=== PATIENT | male | born 1955 | race African-American/Black ===

== ENCOUNTER 2021-07-02 22:41 | Inpatient (IN) | payer MEDICARE, OTHER ==
[~2021-07-02] VITALS: Ht 170.2 cm; Wt 88.9 kg
[~2021-07-02 22:41] MED LIST: AMLO-187 PO; LOSA1TAB19 PO; PANT40TA77 PO
[2021-07-02] MEDS ORDERED: FAMOTIDINE 20 MG/2 ML VIAL IVP ONE (23:45)
[2021-07-03 00:02] LABS: BILIRUBIN,URINE NEGATIVE (NEG); CLARITY,URINE CLEAR; COLOR,URINE YELLOW; NITRITE,URINE NEGATIVE (NEG); PH,URINE 6.5 (<5.0-8.0); PROTEIN,URINE NEGATIVE (NEG-TRACE); UROBILINOGEN,URINE 0.2 mg/dL (0.2 mg/dL)
[2021-07-03 00:05] LABS: BACTERIA,URINE 0 /HPF (0-FEW); RBC,URINE 0 /HPF (0-2); WBC,URINE OCC /HPF (0-4)
--- NOTE | 2021-07-03 00:16 | RAD ---
EXAMINATION: CT abdomen and pelvis without IV contrast. INDICATION:65 years, Male, abdominal pain, nausea and vomiting. TECHNIQUE: Axial CT images of the abdomen and pelvis were obtained. Coronal and sagittal reformatted performed. COMPARISON: PET/CT dated 01/03/2013. Exposure: One or more of the following individualized dose reduction techniques were utilized for thi s examination: 1. Automated exposure control 2. Adjustment of the mA and/or kV according to patient size 3. Use of iterative reconstruction technique. FINDINGS: LOWER CHEST: Unremarkable. ABDOMEN/PELVIS: Mildly dilated multiple loops of small bowel in the left abdomen with perienteric fat stranding and e ngorgement of the vasa recta. Transitional zone is not clearly identified. Mild mesenteric swirling i n the left abdomen. Sigmoid diverticulosis without acute diverticulitis. Uncomplicated duodenal diver ticulum. Appendix is normal. No suspicious focal hepatic lesion, within limitation of noncontrast exam. Spleen, pancreas are unrem arkable. Contracted gallbladder. No biliary ductal dilation. No adrenal nodule. No hydronephrosis. Si mple 6.8 cm left renal cyst. Mild aortoiliac atherosclerotic calcifications without dilation. No lymp hadenopathy. No pneumoperitoneum or ascites. Unremarkable bladder and prostate. MUSCULOSKELETAL STRUCTURES: No suspicious osseous lesion. Multilevel degenerative changes in the spine. IMPRESSION: 1. Mildly dilated loops of small bowel in the left abdomen with perienteric fat stranding and engorg ement of the vasa recta. Transitional zone is not clearly identified. Mild mesenteric swirling in the left abdomen. Findings are consistent with partial small bowel obstruction. 2. Sigmoid diverticulosis without acute diverticulitis. Electronically signed by: Timbo Fournier MD (07/03/2021 12:13 AM) [facility]
--- NOTE | 2021-07-03 00:54 | PHYS DOC ---
General Adult EDM: Chief Complaint: ABDOMINAL PAIN HPI: HPI: Patient is a 65 year old male with a history of lung cancer presenting to the ED today complaining of moderate generalized abdominal pain described as a bloating feeling, symptoms began 5 days ago. Patient reports nausea, denies vomiting. Reports diarrhea this morning after taking Mylanta yesterday. States symptoms are worse when he is laying back. Denies anything specifically relieving the symptoms. (HARRIET ALMONTE AUTOMATIC VULCANIZING LEAD OPERATOR) Review of Systems: Review of Systems: Constitutional: Denies fever or chills. [] Eyes: Denies change in visual acuity. [] HENT: Denies nasal congestion or sore throat. [] Respiratory: Denies cough or shortness of breath. [] Cardiovascular: Denies chest pain or edema. [] GI: Reports generalized abdominal pain with nausea, denies bloody stools or diarrhea. [] : Denies dysuria. [] Musculoskeletal: Denies back pain or joint pain. [] Integument: Denies rash. [] Neurologic: Denies headache, focal weakness or sensory changes. [] Psychiatric: Denies depression or anxiety. [] (HARRIET ALMONTE AUTOM[employer] VULCANIZING LEAD OPERATOR) Heart Score: C/O Chest Pain: N/A Risk Factors: Risk Factors: DM, Current or recent (<one month) smoker, HTN, HLP, family history of CAD, obesity. Risk Scores: Score 0 - 3: 2.5% MACE over next 6 weeks - Discharge Home Score 4 - 6: 20.3% MACE over next 6 weeks - Admit for Clinical Observation Score 7 - 10: 72.7% MACE over next 6 weeks - Early Invasive Strategies (HARRIET ALMONTE [employer]OM[employer] VULCANIZING LEAD OPERATOR) Current Medications: Current Medications Medications (Trade) Dose Ordered Sig/Jon Start Time Stop Time Status Last Admin Dose Admin Famotidine (Pepcid Vial) 20 mg 1X ONCE 07/02/21 23:45 07/02/21 23:46 DC (HARRIET ALMONTE AUTOM[employer] VULCANIZING LEAD OPERATOR) Allergies: Allergies: Allergies Coded Allergies Type Severity Reaction Last Updated Verified No Known Drug Allergies 12/31/13 No (HARRIET ALMONTE [employer] VULCAN[employer]ING LEAD OPERATOR) Physical Exam: PE: Constitutional: Well developed, well nourished, no acute distress, non-toxic appearance. [] HENT: Normocephalic, atraumatic, bilateral external ears normal, oropharynx moist, no oral exudates, nose normal. [] Eyes: PERRLA, EOMI, conjunctiva normal, no discharge. [] Neck: Normal range of motion, no tenderness, supple, no stridor. [] Cardiovascular:Heart rate regular rhythm, no murmur [] Lungs & Thorax: Bilateral breath sounds clear to auscultation [] Abdomen: Abdomen looks round/bloated, hyperresonance bowel sounds normal, soft, diffuse tenderness throughout the abdomen worse on the upper abdomen, no masses, no pulsatile masses. [] Skin: Warm, dry, no erythema, no rash. [] Back: No tenderness, no CVA tenderness. [] Extremities: No tenderness, no cyanosis, no clubbing, ROM intact, no edema. [] Neurologic: Alert and oriented X 3, normal motor function, normal sensory function, no focal deficits noted. [] Psychologic: Affect normal, judgement normal, mood normal. [] (HARRIET ALMONTE AUTOM[employer] VULCAN[employer]ING LEAD OPERATOR) Current Patient Data: Labs: Laboratory Tests Test 07/02/21 23:54 Urine Collection Type Void Urine Color Yellow Urine Clarity Clear Urine pH 6.5 (<5.0-8.0) Urine Specific [place] 1.020 (1.000-1.030) Urine Protein Negative mg/dL (NEG-TRACE) Urine Glucose (UA) Negative mg/dL (NEG) Urine Ketones (Stick) Negative mg/dL (NEG) Urine Blood Negative (NEG) Urine Nitrite Negative (NEG) Urine Bilirubin Negative (NEG) Urine Urobilinogen Dipstick 0.2 mg/dL (0.2 mg/dL) Urine Leukocyte Esterase Negative (NEG) Urine RBC 0 /HPF (0-2) Urine WBC Occ /HPF (0-4) Urine Squamous Epithelial Cells Occ /LPF Urine Bacteria 0 /HPF (0-FEW) Urine Mucus Slight /LPF (HARRIET ALMONTE AUTOM[employer] VULCANIZING LEAD OPERATOR) EKG: EKG: [] (HARRIET ALMONTE APRN) Radiology/Procedures: Radiology/Procedures: []PROCEDURE: CT ABDOMEN PELVIS WO CONTRAST EXAMINATION: CT abdomen and pelvis without IV contrast. INDICATION:65 years, Male, abdominal pain, nausea and vomiting. TECHNIQUE: Axial CT images of the abdomen and pelvis were obtained. Coronal and sagittal reformatted performed. COMPARISON: PET/CT dated 01/03/2013. Exposure: One or more of the following individualized dose reduction techniques were utilized for this examination: 1. Automated exposure control 2. Adjustment of the mA and/or kV according to patient size 3. Use of iterative reconstruction technique. FINDINGS: LOWER CHEST: Unremarkable. ABDOMEN/PELVIS: Mildly dilated multiple loops of small bowel in the left abdomen with perienteric fat stranding and engorgement of the vasa recta. Transitional zone is not clearly identified. Mild mesenteric swirling in the left abdomen. Sigmoid diverticulosis without acute diverticulitis. Uncomplicated duodenal diverticulum. Appendix is normal. No suspicious focal hepatic lesion, within limitation of noncontrast exam. Spleen, pancreas are unremarkable. Contracted gallbladder. No biliary ductal dilation. No adrenal nodule. No hydronephrosis. Simple 6.8 cm left renal cyst. Mild aortoiliac atherosclerotic calcifications without dilation. No lymphadenopathy. No pneumoperitoneum or ascites. Unremarkable bladder and prostate. MUSCULOSKELETAL STRUCTURES: No suspicious osseous lesion. Multilevel degenerative changes in the spine. IMPRESSION: 1. Mildly dilated loops of small bowel in the left abdomen with perienteric fat stranding and engorgement of the vasa recta. Transitional zone is not clearly identified. Mild mesenteric swirling in the left abdomen. Findings are consistent with partial small bowel obstruction. 2. Sigmoid diverticulosis without acute diverticulitis. Electronically signed by: Bogdan Fournier MD (07/03/2021 12:13 AM) [facility] DICTATED and SIGNED BY: BOGDAN FOURNIER MD DATE: 07/03/21 [id number] (HARRIET ALMONTE APRN) Course & Med Decision Making: Course & Med Decision Making Pertinent Labs and Imaging studies reviewed. (See chart for details) This is a 65-year-old male patient presented to the ED today complaining of generalized abdominal pain, bloating, symptoms for 5 days. Labs are pending, CT of the abdomen and pelvis was noted for a partial small bowel obstruction Patient has no vomiting in the ED. Spoke with Dr. Faulkner who will follow up with the patient Admitted under Dr. Theodore (HARRIET ALMONTE APRN) Course & Med Decision Making Patients Care and treatment plan provided by ER Nurse Practitioner. I was available for consult. Patient's chart reviewed. (LUKASZ BEST DO) Yue Disclaimer: Yue Disclaimer: This electronic medical record was generated, in whole or in part, using a voice recognition dictation system. (HARRIET ALMONTE APRN) Departure Departure Impression: Primary Impression: Partial small bowel obstruction Disposition: ADMITTED INPATIENT Condition: STABLE Referrals: UNKNOWN PCP NAME (PCP) HARRIET ALMONTE APRN Jul 03, 2021 00:54 LUKASZ BEST DO Jul 03, 2021 18:46
[2021-07-03] MEDS ORDERED: IV NORMAL SALINE 1000ML BAG 1,000 ML IV ONE (01:00)
[2021-07-03] MEDS ORDERED: ONDANSETRON PF 4 MG/2 ML VIAL. IVP PRN ×2 (01:00→08:30)
[2021-07-03 01:16] LABS: BASO % 0 % (0-3); EOS % 0 % (0-3); HEMATOCRIT 39.9 % (39.0-53.0); HEMOGLOBIN 12.7 g/dL (13.0-17.5); LYMPH % 11 % (24-48); MEAN CORPUSCULAR HEMOGLOBIN 26 pg (25-35); MEAN CORPUSCULAR HGB CONC 32 g/dL (31-37); MEAN CORPUSCULAR VOLUME 82 fL (79-100); MONO # 0.7 x10^3/uL (0.0-1.1); MONO % 8 % (0-9); NEUT # 7.2 x10^3/uL (1.8-7.7); NEUT % 81 % (31-73); PLATELET COUNT 285 x10^3/uL (140-400); RED BLOOD COUNT 4.86 x10^6/uL (4.30-5.70); RED CELL DISTRIBUTION WIDTH 18.8 % (11.5-14.5)
[2021-07-03] MEDS: MORPHINE SULFATE 4 MG/ML INJ. IVP PRN ×5 (02:55→21:28)
[2021-07-03 03:30] VITALS: BP 120/63
[2021-07-03] MEDS ORDERED: TAMS0.4C97 PO (03:46)
[2021-07-03 07:00] VITALS: BP 129/74
[2021-07-03] MEDS ORDERED: TIOT18CA IH (07:17)
[2021-07-03 07:29] LABS: CALCIUM 8.1 mg/dL (8.5-10.1); CREATININE 1.1 mg/dL (0.7-1.3); GFR 81.3; POTASSIUM 4.1 mmol/L (3.5-5.1)
[2021-07-03 07:34] LABS: ALBUMIN 3.3 g/dL (3.4-5.0); ALBUMIN/GLOBULIN RATIO 0.9 (1.0-1.7); MAGNESIUM 2.5 mg/dL (1.8-2.4); TOTAL BILIRUBIN 0.7 mg/dL (0.2-1.0); TOTAL PROTEIN 7.1 g/dL (6.4-8.2)
--- NOTE | 2021-07-03 08:20 | PDOC2 ---
CONSULT Date of Consult Date of Consult DATE: 07/03/21 TIME: 08:06 Reason for Consult Reason for Consult: sbo Referring Physician Referring Physician: er Identification/Chief Complaint Chief Complaint abdominal pain Source Source: Chart review, Patient History of Present Illness Reason for Visit: Admitted with 1 week hx of abdominal pain, vomiting, bloating and diarrhea. Thinks diarrhea is due to taking Mylanta No similar symptoms in past last diarrhea yesterday no abdominal surgical hx Past Medical History Cardiovascular: HTN, Hyperlipidemia Heme/Onc: Cancer (lung) Past Surgical History Past Surgical History: Other (thoractomy ) Family History Family History: Other (noncontributory to current illness ) Social History Quit ALCOHOL: none Drugs: None Lives: with Family Current Problem List Problem List Problems Medical Problems: (1) Partial small bowel obstruction Status: Acute Current Medications Current Medications Current Medications Famotidine (Pepcid Vial) 20 mg 1X ONCE IVP Last administered on 07/03/21at 02:55; Start 07/02/21 at 23:45; Stop 07/02/21 at 23:46; Status DC Ondansetron HCl (Zofran) 4 mg PRN Q8HRS PRN IVP NAUSEA/VOMITING Last administered on 07/03/21at 02:55; Start 07/03/21 at 01:00; Stop 07/04/21 at 00:59 Morphine Sulfate (Morphine Sulfate) 4 mg PRN Q2HR PRN IVP PAIN Last administered on 07/03/21at 06:49; Start 07/03/21 at 01:00; Stop 07/04/21 at 00:59 Sodium Chloride 1,000 ml @ 75 mls/hr 1X ONCE IV Last administered on 07/03/21at 02:54; Start 07/03/21 at 01:00; Stop 07/03/21 at 14:19 Active Scripts Active Reported Spiriva (Tiotropium [place]) 18 Mcg Cap.w.dev 2 Inh IH DAILY Flomax (Tamsulosin Hcl) 0.4 Mg Cap.er.24h 1 Cap PO DAILY Pantoprazole Sodium (Pantoprazole Sodium) 40 Mg Tablet.dr 1 Tab PO DAILY Amlodipine Besylate 10 Mg Tablet 1 Tab PO DAILY Losartan-Hctz 50-12.5 Mg Tab (Losartan/Hydrochlorothiazide) 1 Each Tablet 1 Tab PO DAILY Allergies Allergies: Coded Allergies: No Known Drug Allergies (Unverified , 12/31/13) ROS General: YES: Appetite (loss); No: Chills PSYCHOLOGICAL ROS: No: Anxiety, Depression Eyes: No Blurry vision, No Double vision HEENT: No: Heacaches, Sore Throat Hematological and Lymphatic: No: Bleeding Problems, Blood Clots Respiratory: No: Cough, Shortness of breath Gastrointestinal: Yes Other (see hpi) Genitourinary: No Dysuria, No Retention Musculoskeletal: No Joint Pain, No Muscle Pain Neurological: No Impaired Coord/balance, No Numbness/Tingling Skin: No Pruritus, No Rash Physical Exam General: Alert, Oriented X3, Cooperative HEENT: Atraumatic, PERRLA Lungs: Clear to auscultation, Normal air movement Heart: Regular rate, Normal S1, Normal S2 Abdomen: Soft, Other (Nd, benign abdominal exam currently ) Extremities: No clubbing, No cyanosis Skin: No rashes, No breakdown Neuro: Normal gait, Normal speech Psych/Mental Status: Mental status NL, Mood NL MUSCULOSKELETAL: No deformity, No swelling Vitals VITALS Vital Signs Date Time Temp Pulse Resp B/P (MAP) Pulse Ox O2 Delivery O2 Flow Rate FiO2 07/03/21 06:49 93 07/03/21 04:00 Room Air 07/03/21 03:30 98.2 82 18 120/63 (82) 98.2 Labs Labs Laboratory Tests Test 07/02/21 23:54 07/03/21 01:10 07/03/21 02:50 07/03/21 06:50 Urine Collection Type Void Urine Color Yellow Urine Clarity Clear Urine pH 6.5 (<5.0-8.0) Urine Specific [place] 1.020 (1.000-1.030) Urine Protein Negative mg/dL (NEG-TRACE) Urine Glucose (UA) Negative mg/dL (NEG) Urine Ketones (Stick) Negative mg/dL (NEG) Urine Blood Negative (NEG) Urine Nitrite Negative (NEG) Urine Bilirubin Negative (NEG) Urine Urobilinogen Dipstick 0.2 mg/dL (0.2 mg/dL) Urine Leukocyte Esterase Negative (NEG) Urine RBC 0 /HPF (0-2) Urine WBC Occ /HPF (0-4) Urine Squamous Epithelial Cells Occ /LPF Urine Bacteria 0 /HPF (0-FEW) Urine Mucus Slight /LPF White Blood Count 9.0 x10^3/uL (4.0-11.0) Red Blood Count 4.86 x10^6/uL (4.30-5.70) Hemoglobin 12.7 g/dL (13.0-17.5) Hematocrit 39.9 % (39.0-53.0) Mean Corpuscular Volume 82 fL (79-100) Mean Corpuscular Hemoglobin 26 pg (25-35) Mean Corpuscular Hemoglobin Concent 32 g/dL (31-37) Red Cell Distribution Width 18.8 % (11.5-14.5) Platelet Count 285 x10^3/uL (140-400) Neutrophils (%) (Auto) 81 % (31-73) Lymphocytes (%) (Auto) 11 % (24-48) Monocytes (%) (Auto) 8 % (0-9) Eosinophils (%) (Auto) 0 % (0-3) Basophils (%) (Auto) 0 % (0-3) Neutrophils # (Auto) 7.2 x10^3/uL (1.8-7.7) Lymphocytes # (Auto) 1.0 x10^3/uL (1.0-4.8) Monocytes # (Auto) 0.7 x10^3/uL (0.0-1.1) Eosinophils # (Auto) 0.0 x10^3/uL (0.0-0.7) Basophils # (Auto) 0.0 x10^3/uL (0.0-0.2) SARS-CoV-2 Antigen (Rapid) Negative (NEGATIVE) Sodium Level 138 mmol/L (136-145) Potassium Level 4.1 mmol/L (3.5-5.1) Chloride Level 103 mmol/L (98-107) Carbon Dioxide Level 25 mmol/L (21-32) Anion Gap 10 (6-14) Blood Urea Nitrogen 10 mg/dL (8-26) Creatinine 1.1 mg/dL (0.7-1.3) Estimated GFR (Cockcroft-Gault) 81.3 BUN/Creatinine Ratio 9 (6-20) Glucose Level 100 mg/dL (70-99) Calcium Level 8.1 mg/dL (8.5-10.1) Magnesium Level 2.5 mg/dL (1.8-2.4) Total Bilirubin 0.7 mg/dL (0.2-1.0) Aspartate Amino Transf (AST/SGOT) 11 U/L (15-37) Alanine Aminotransferase (ALT/SGPT) 22 U/L (16-63) Alkaline Phosphatase 64 U/L (46-116) Total Protein 7.1 g/dL (6.4-8.2) Albumin 3.3 g/dL (3.4-5.0) Albumin/Globulin Ratio 0.9 (1.0-1.7) Lipase 290 U/L (73-393) Laboratory Tests Test 07/02/21 23:54 07/03/21 01:10 07/03/21 02:50 07/03/21 06:50 Urine Collection Type Void Urine Color Yellow Urine Clarity Clear Urine pH 6.5 (<5.0-8.0) Urine Specific [place] 1.020 (1.000-1.030) Urine Protein Negative mg/dL (NEG-TRACE) Urine Glucose (UA) Negative mg/dL (NEG) Urine Ketones (Stick) Negative mg/dL (NEG) Urine Blood Negative (NEG) Urine Nitrite Negative (NEG) Urine Bilirubin Negative (NEG) Urine Urobilinogen Dipstick 0.2 mg/dL (0.2 mg/dL) Urine Leukocyte Esterase Negative (NEG) Urine RBC 0 /HPF (0-2) Urine WBC Occ /HPF (0-4) Urine Squamous Epithelial Cells Occ /LPF Urine Bacteria 0 /HPF (0-FEW) Urine Mucus Slight /LPF White Blood Count 9.0 x10^3/uL (4.0-11.0) Red Blood Count 4.86 x10^6/uL (4.30-5.70) Hemoglobin 12.7 g/dL (13.0-17.5) Hematocrit 39.9 % (39.0-53.0) Mean Corpuscular Volume 82 fL (79-100) Mean Corpuscular Hemoglobin 26 pg (25-35) Mean Corpuscular Hemoglobin Concent 32 g/dL (31-37) Red Cell Distribution Width 18.8 % (11.5-14.5) Platelet Count 285 x10^3/uL (140-400) Neutrophils (%) (Auto) 81 % (31-73) Lymphocytes (%) (Auto) 11 % (24-48) Monocytes (%) (Auto) 8 % (0-9) Eosinophils (%) (Auto) 0 % (0-3) Basophils (%) (Auto) 0 % (0-3) Neutrophils # (Auto) 7.2 x10^3/uL (1.8-7.7) Lymphocytes # (Auto) 1.0 x10^3/uL (1.0-4.8) Monocytes # (Auto) 0.7 x10^3/uL (0.0-1.1) Eosinophils # (Auto) 0.0 x10^3/uL (0.0-0.7) Basophils # (Auto) 0.0 x10^3/uL (0.0-0.2) SARS-CoV-2 Antigen (Rapid) Negative (NEGATIVE) Sodium Level 138 mmol/L (136-145) Potassium Level 4.1 mmol/L (3.5-5.1) Chloride Level 103 mmol/L (98-107) Carbon Dioxide Level 25 mmol/L (21-32) Anion Gap 10 (6-14) Blood Urea Nitrogen 10 mg/dL (8-26) Creatinine 1.1 mg/dL (0.7-1.3) Estimated GFR (Cockcroft-Gault) 81.3 BUN/Creatinine Ratio 9 (6-20) Glucose Level 100 mg/dL (70-99) Calcium Level 8.1 mg/dL (8.5-10.1) Magnesium Level 2.5 mg/dL (1.8-2.4) Total Bilirubin 0.7 mg/dL (0.2-1.0) Aspartate Amino Transf (AST/SGOT) 11 U/L (15-37) Alanine Aminotransferase (ALT/SGPT) 22 U/L (16-63) Alkaline Phosphatase 64 U/L (46-116) Total Protein 7.1 g/dL (6.4-8.2) Albumin 3.3 g/dL (3.4-5.0) Albumin/Globulin Ratio 0.9 (1.0-1.7) Lipase 290 U/L (73-393) Assessment/Plan Assessment/Plan SBO vs ileus, enteritis --- he has been having diarrhea will check SBFT, will ask GI to evgabriele also CRUZITO OLSEN APRN Jul 03, 2021 08:20
--- NOTE | 2021-07-03 08:28 | PDOC1 ---
History and Physical Date of Service: DOS: DATE: 07/03/21 TIME: 08:23 Chief Complaint: Chief Complain: Abdominal pain History of Present Illness: HPI: 65 year old male with a history of lung cancer presenting to the ED today complaining of moderate generalized abdominal pain described as a bloating feeling, symptoms began 5 days ago. Patient reports nausea, denies vomiting. Reports diarrhea this morning after taking Mylanta yesterday. States symptoms are worse when he is laying back. Denies anything specifically relieving the symptoms. Past Medical/Surgical History: PMH/PSH: Past medical history: Past surgical history: Thoracotomy, right hip replacement, left rotator cuff repair Allergies: Allergies: Coded Allergies: No Known Drug Allergies (Unverified , 12/31/13) Family History: Family History: Reviewed with no relative findings in the chart Social History: Social History: Former smoker, quit 1 year ago Current Medications: Current Medications Current Medications Famotidine (Pepcid Vial) 20 mg 1X ONCE IVP Last administered on 07/03/21at 02:55; Start 07/02/21 at 23:45; Stop 07/02/21 at 23:46; Status DC Ondansetron HCl (Zofran) 4 mg PRN Q8HRS PRN IVP NAUSEA/VOMITING Last administered on 07/03/21at 02:55; Start 07/03/21 at 01:00; Stop 07/04/21 at 00:59 Morphine Sulfate (Morphine Sulfate) 4 mg PRN Q2HR PRN IVP PAIN Last administered on 07/03/21at 06:49; Start 07/03/21 at 01:00; Stop 07/04/21 at 00:59 Sodium Chloride 1,000 ml @ 75 mls/hr 1X ONCE IV Last administered on 07/03/21at 02:54; Start 07/03/21 at 01:00; Stop 07/03/21 at 14:19 Active Scripts Active Reported Spiriva (Tiotropium [place]) 18 Mcg Cap.w.dev 2 Inh IH DAILY Flomax (Tamsulosin Hcl) 0.4 Mg Cap.er.24h 1 Cap PO DAILY Pantoprazole Sodium (Pantoprazole Sodium) 40 Mg Tablet.dr 1 Tab PO DAILY Amlodipine Besylate 10 Mg Tablet 1 Tab PO DAILY Losartan-Hctz 50-12.5 Mg Tab (Losartan/Hydrochlorothiazide) 1 Each Tablet 1 Tab PO DAILY ROS: Review of Systems Review of System REVIEW OF SYSTEMS: GENERAL: Denies weakness SKIN: No bruising, hair changes or rashes. EYES: No blurred, double or loss of vision. NOSE AND THROAT: No history of nosebleeds, hoarseness or sore throat. HEART: No history of palpitations, chest pain or shortness of breath on exertion. LUNGS: Denies cough, hemoptysis, wheezing or shortness of breath. GASTROINTESTINAL: Positive for abdominal pain GENITOURINARY: No history of frequency, urgency, hesitancy or nocturia. NEUROLOGIC: Denies history of numbness, tingling, or tremor. PSYCHIATRIC: No history of panic, anxiety or depression. ENDOCRINE: No history of heat or cold intolerance, polyuria or polydipsia. EXTREMITIES: Denies joint pain, pain on walking or stiffness. Physical Exam: Vital Signs: Vital Signs Date Time Temp Pulse Resp B/P (MAP) Pulse Ox O2 Delivery O2 Flow Rate FiO2 07/03/21 07:00 97.8 72 18 129/74 (92) 94 Room Air 97.8 Physcial Exam: General: Well developed, well nourished, no acute distress, well appearing HEENT: Pupils equally round and reactive to light, EOMI, no discharge, normal conjunctiva Neck: Supple, no nuchal rigidity, no JVD, trachea midline, no tenderness Cardiac: RRR, no murmurs, no gallops, no rubs Chest/Lungs: CTAB, no wheeze, no rhonchi, no crackles Abdomen: soft, mildly distended, minimal guarding, no peritoneal signs, non- tender Back: No tenderness Extremities: no edema, pulses intact, non-tender,capillary refill <3 sec bilateral upper and lower extremities, Neuro: Alert and oriented x 4, no focal deficits, normal speech Labs: Labs: Laboratory Tests Test 07/02/21 23:54 07/03/21 01:10 07/03/21 02:50 07/03/21 06:50 Urine Collection Type Void Urine Color Yellow Urine Clarity Clear Urine pH 6.5 (<5.0-8.0) Urine Specific [place] 1.020 (1.000-1.030) Urine Protein Negative mg/dL (NEG-TRACE) Urine Glucose (UA) Negative mg/dL (NEG) Urine Ketones (Stick) Negative mg/dL (NEG) Urine Blood Negative (NEG) Urine Nitrite Negative (NEG) Urine Bilirubin Negative (NEG) Urine Urobilinogen Dipstick 0.2 mg/dL (0.2 mg/dL) Urine Leukocyte Esterase Negative (NEG) Urine RBC 0 /HPF (0-2) Urine WBC Occ /HPF (0-4) Urine Squamous Epithelial Cells Occ /LPF Urine Bacteria 0 /HPF (0-FEW) Urine Mucus Slight /LPF White Blood Count 9.0 x10^3/uL (4.0-11.0) Red Blood Count 4.86 x10^6/uL (4.30-5.70) Hemoglobin 12.7 g/dL (13.0-17.5) Hematocrit 39.9 % (39.0-53.0) Mean Corpuscular Volume 82 fL (79-100) Mean Corpuscular Hemoglobin 26 pg (25-35) Mean Corpuscular Hemoglobin Concent 32 g/dL (31-37) Red Cell Distribution Width 18.8 % (11.5-14.5) Platelet Count 285 x10^3/uL (140-400) Neutrophils (%) (Auto) 81 % (31-73) Lymphocytes (%) (Auto) 11 % (24-48) Monocytes (%) (Auto) 8 % (0-9) Eosinophils (%) (Auto) 0 % (0-3) Basophils (%) (Auto) 0 % (0-3) Neutrophils # (Auto) 7.2 x10^3/uL (1.8-7.7) Lymphocytes # (Auto) 1.0 x10^3/uL (1.0-4.8) Monocytes # (Auto) 0.7 x10^3/uL (0.0-1.1) Eosinophils # (Auto) 0.0 x10^3/uL (0.0-0.7) Basophils # (Auto) 0.0 x10^3/uL (0.0-0.2) SARS-CoV-2 Antigen (Rapid) Negative (NEGATIVE) Sodium Level 138 mmol/L (136-145) Potassium Level 4.1 mmol/L (3.5-5.1) Chloride Level 103 mmol/L (98-107) Carbon Dioxide Level 25 mmol/L (21-32) Anion Gap 10 (6-14) Blood Urea Nitrogen 10 mg/dL (8-26) Creatinine 1.1 mg/dL (0.7-1.3) Estimated GFR (Cockcroft-Gault) 81.3 BUN/Creatinine Ratio 9 (6-20) Glucose Level 100 mg/dL (70-99) Calcium Level 8.1 mg/dL (8.5-10.1) Magnesium Level 2.5 mg/dL (1.8-2.4) Total Bilirubin 0.7 mg/dL (0.2-1.0) Aspartate Amino Transf (AST/SGOT) 11 U/L (15-37) Alanine Aminotransferase (ALT/SGPT) 22 U/L (16-63) Alkaline Phosphatase 64 U/L (46-116) Total Protein 7.1 g/dL (6.4-8.2) Albumin 3.3 g/dL (3.4-5.0) Albumin/Globulin Ratio 0.9 (1.0-1.7) Lipase 290 U/L (73-393) Laboratory Tests Test 07/02/21 23:54 07/03/21 01:10 07/03/21 02:50 07/03/21 06:50 Urine Collection Type Void Urine Color Yellow Urine Clarity Clear Urine pH 6.5 (<5.0-8.0) Urine Specific [place] 1.020 (1.000-1.030) Urine Protein Negative mg/dL (NEG-TRACE) Urine Glucose (UA) Negative mg/dL (NEG) Urine Ketones (Stick) Negative mg/dL (NEG) Urine Blood Negative (NEG) Urine Nitrite Negative (NEG) Urine Bilirubin Negative (NEG) Urine Urobilinogen Dipstick 0.2 mg/dL (0.2 mg/dL) Urine Leukocyte Esterase Negative (NEG) Urine RBC 0 /HPF (0-2) Urine WBC Occ /HPF (0-4) Urine Squamous Epithelial Cells Occ /LPF Urine Bacteria 0 /HPF (0-FEW) Urine Mucus Slight /LPF White Blood Count 9.0 x10^3/uL (4.0-11.0) Red Blood Count 4.86 x10^6/uL (4.30-5.70) Hemoglobin 12.7 g/dL (13.0-17.5) Hematocrit 39.9 % (39.0-53.0) Mean Corpuscular Volume 82 fL (79-100) Mean Corpuscular Hemoglobin 26 pg (25-35) Mean Corpuscular Hemoglobin Concent 32 g/dL (31-37) Red Cell Distribution Width 18.8 % (11.5-14.5) Platelet Count 285 x10^3/uL (140-400) Neutrophils (%) (Auto) 81 % (31-73) Lymphocytes (%) (Auto) 11 % (24-48) Monocytes (%) (Auto) 8 % (0-9) Eosinophils (%) (Auto) 0 % (0-3) Basophils (%) (Auto) 0 % (0-3) Neutrophils # (Auto) 7.2 x10^3/uL (1.8-7.7) Lymphocytes # (Auto) 1.0 x10^3/uL (1.0-4.8) Monocytes # (Auto) 0.7 x10^3/uL (0.0-1.1) Eosinophils # (Auto) 0.0 x10^3/uL (0.0-0.7) Basophils # (Auto) 0.0 x10^3/uL (0.0-0.2) SARS-CoV-2 Antigen (Rapid) Negative (NEGATIVE) Sodium Level 138 mmol/L (136-145) Potassium Level 4.1 mmol/L (3.5-5.1) Chloride Level 103 mmol/L (98-107) Carbon Dioxide Level 25 mmol/L (21-32) Anion Gap 10 (6-14) Blood Urea Nitrogen 10 mg/dL (8-26) Creatinine 1.1 mg/dL (0.7-1.3) Estimated GFR (Cockcroft-Gault) 81.3 BUN/Creatinine Ratio 9 (6-20) Glucose Level 100 mg/dL (70-99) Calcium Level 8.1 mg/dL (8.5-10.1) Magnesium Level 2.5 mg/dL (1.8-2.4) Total Bilirubin 0.7 mg/dL (0.2-1.0) Aspartate Amino Transf (AST/SGOT) 11 U/L (15-37) Alanine Aminotransferase (ALT/SGPT) 22 U/L (16-63) Alkaline Phosphatase 64 U/L (46-116) Total Protein 7.1 g/dL (6.4-8.2) Albumin 3.3 g/dL (3.4-5.0) Albumin/Globulin Ratio 0.9 (1.0-1.7) Lipase 290 U/L (73-393) Images: Images PROCEDURE: CT ABDOMEN PELVIS WO CONTRAST EXAMINATION: CT abdomen and pelvis without IV contrast. INDICATION:65 years, Male, abdominal pain, nausea and vomiting. TECHNIQUE: Axial CT images of the abdomen and pelvis were obtained. Coronal and sagittal reformatted performed. COMPARISON: PET/CT dated 01/03/2013. Exposure: One or more of the following individualized dose reduction techniques were utilized for this examination: 1. Automated exposure control 2. Adjustment of the mA and/or kV according to patient size 3. Use of iterative reconstruction technique. FINDINGS: LOWER CHEST: Unremarkable. ABDOMEN/PELVIS: Mildly dilated multiple loops of small bowel in the left abdomen with perienteric fat stranding and engorgement of the vasa recta. Transitional zone is not clearly identified. Mild mesenteric swirling in the left abdomen. Sigmoid diverticulosis without acute diverticulitis. Uncomplicated duodenal diverticulum. Appendix is normal. No suspicious focal hepatic lesion, within limitation of noncontrast exam. Spleen, pancreas are unremarkable. Contracted gallbladder. No biliary ductal dilation. No adrenal nodule. No hydronephrosis. Simple 6.8 cm left renal cyst. Mild aortoiliac atherosclerotic calcifications without dilation. No lymphadenopathy. No pneumoperitoneum or ascites. Unremarkable bladder and prostate. MUSCULOSKELETAL STRUCTURES: No suspicious osseous lesion. Multilevel degenerative changes in the spine. IMPRESSION: 1. Mildly dilated loops of small bowel in the left abdomen with perienteric fat stranding and engorgement of the vasa recta. Transitional zone is not clearly identified. Mild mesenteric swirling in the left abdomen. Findings are consistent with partial small bowel obstruction. 2. Sigmoid diverticulosis without acute diverticulitis. Assessment/Plan Assessment/Plan Acute abdominal pain due to partial small bowel obstruction Concern for gastroenteritis History of asthma History of BPH History of hypertension Obesity class I Admit to hospitalist service for further management General surgery consult Pending small bowel follow-through GI consult Serial abdominal exams NPO Continue IV fluids IV pain control Lovenox for DVT prophylaxis Protonix GI prophylaxis ADA diet CODE STATUS full code Discussed with RN and SW Disposition inpatient management as above DPOA: Robyn Day In addition to my E/M visit, advance care planning done with A total time of 20 minutes was spent from 930 to 950 face to face in discussion regarding the patient's goals of care, CODE STATUS. Justifications for Admission Other Justification LEEROY ALFREDO MD Jul 03, 2021 08:28
[2021-07-03] MEDS ORDERED: ACETAMINOPHEN 325 MG TABLET. PO PRN (08:30)
[2021-07-03] MEDS ORDERED: diphenhydrAMINE 50 MG/ML VIAL IVP PRN (08:30)
[2021-07-03] MEDS ORDERED: SENNOSIDES 8.6 MG TABLET PO PRN (08:30)
[2021-07-03] MEDS ORDERED: ZOLPIDEM 5 MG TABLET. PO PRN (08:30)
[2021-07-03] MEDS ORDERED: DEXTROSE 50% 25 GM / 50ML DISP.SYRIN. IV PRN (08:30)
[2021-07-03] MEDS ORDERED: DOCUSATE SODIUM 100 MG CAPSULE. PO PRN (08:30)
[2021-07-03] MEDS ORDERED: LORazepam 0.5 MG TABLET PO PRN (08:30)
[2021-07-03] MEDS ORDERED: diphenhydrAMINE HCL 25 MG CAPSULE PO PRN ×2 (08:30)
[2021-07-03] MEDS ORDERED: PROCHLORPERAZINE 10 MG/2 ML VIAL. IV PRN (08:30)
--- NOTE | 2021-07-03 08:50 | RAD ---
Study: XR ABDOMEN COMP ACUTE Indication: Small bowel obstruction. Comparison: CT abdomen/pelvis 07/02/2021; chest radiographs 06/25/2012 Findings: Mildly prominent lung markings. No confluent airspace infiltrate. No pleural effusion or pneumothorax . The cardiomediastinal silhouette is within normal limits for size. Symmetric wilda. Arthrosis at the shoulders. Redemonstration of mild small bowel dilatation such as at the left upper quadrant measuring up to nikita und 4 cm. No radiographic evidence for pneumoperitoneum. Small amount of well-formed stool within the colon. Gas is present within the rectum. Arthrosis at the right more so than left hips. Lumbar spondylosis. Impression: 1. Similar degree of mild small bowel dilatation mainly at the left aspect of the abdomen in relation to the recent CT abdomen/pelvis. Partial small bowel obstruction is still a consideration without ra diographic evidence for worsening. 2. Mildly increased lung markings favored chronic. No confluent infiltrate or layering effusion. Electronically signed by: NURY DUNCAN MD (07/03/2021 8:48 AM) [facility]
[2021-07-03] MEDS ORDERED: IOHEXOL 300 MG/ML 100ML VIAL. PO ONE (09:30)
[2021-07-03] MEDS: IV NORMAL SALINE 1000ML BAG 1,000 ML IV SCH ×2 (09:38→15:17)
[2021-07-03] MEDS: ENOXAPARIN 40 MG/0.4 ML SYRINGE. SQ SCH (09:39)
[2021-07-03 11:00] VITALS: BP 117/77
--- NOTE | 2021-07-03 12:32 | PDOC2 ---
GI CONSULT Reason For Consult: sbo HPI: HPI: 65 year old male with a history of lung cancer presenting to the ED today complaining of moderate generalized abdominal pain described as a bloating feeling, symptoms [id number] ago. Patient reports nausea and vomiting. Reports diarrhea this morning after taking Mylanta yesterday. States symptoms are worse when he is laying back. His symptoms had been relieved when he passed gas. he had been passing a lot of gas until yesterday. He has not had any N/V since admit sna d reports pain is controlled on meds. He reports an unremarkable colonoscopy with Shima Ellis at some point in the past. CT A/P with Mildly dilated loops of small bowel in the left abdomen with perienteric fat stranding and engorgement of the vasa recta. Transitional zone is not clearly identified. Mild mesenteric swirling in the left abdomen. Findings are consistent with partial small bowel obstruction PMH: PMH: Past medical history: Past surgical history: Thoracotomy, right hip replacement, left rotator cuff repair Allergies: No Known Drug Allergies (Unverified , 12/31/13) Family History: Reviewed with no relative findings in the chart Social History: Social History: Former smoker, quit 1 year ago Current Medications Famotidine (Pepcid Vial) 20 mg 1X ONCE IVP Last administered on 07/03/21at 02:55; Start 07/02/21 at 23:45; Stop 07/02/21 at 23:46; Status DC Ondansetron HCl (Zofran) 4 mg PRN Q8HRS PRN IVP NAUSEA/VOMITING Last administered on 07/03/21at 02:55; Start 07/03/21 at 01:00; Stop 07/04/21 at 00:59 Morphine Sulfate (Morphine Sulfate) 4 mg PRN Q2HR PRN IVP PAIN Last administered on 07/03/21at 06:49; Start 07/03/21 at 01:00; Stop 07/04/21 at 00:59 Sodium Chloride 1,000 ml @ 75 mls/hr 1X ONCE IV Last administered on 07/03/21at 02:54; Start 07/03/21 at 01:00; Stop 07/03/21 at 14:19 Active Scripts Active Reported Spiriva (Tiotropium [place]) 18 Mcg Cap.w.dev 2 Inh IH DAILY Flomax (Tamsulosin Hcl) 0.4 Mg Cap.er.24h 1 Cap PO DAILY Pantoprazole Sodium (Pantoprazole Sodium) 40 Mg Tablet.dr 1 Tab PO DAILY Amlodipine Besylate 10 Mg Tablet 1 Tab PO DAILY Losartan-Hctz 50-12.5 Mg Tab (Losartan/Hydrochlorothiazide) 1 Each Tablet 1 Tab PO DAILY Social History: Smoke: Quit ALCOHOL: none Drugs: None ROS: GENERAL: Denies weakness SKIN: No bruising, hair changes or rashes. EYES: No blurred, double or loss of vision. NOSE AND THROAT: No history of nosebleeds, hoarseness or sore throat. HEART: No history of palpitations, chest pain or shortness of breath on exertion. LUNGS: Denies cough, hemoptysis, wheezing or shortness of breath. GASTROINTESTINAL: Positive for abdominal pain GENITOURINARY: No history of frequency, urgency, hesitancy or nocturia. NEUROLOGIC: Denies history of numbness, tingling, or tremor. PSYCHIATRIC: No history of panic, anxiety or depression. ENDOCRINE: No history of heat or cold intolerance, polyuria or polydipsia. EXTREMITIES: Denies joint pain, pain on walking or stiffness. VItals: Vitals: Vital Signs Date Time Temp Pulse Resp B/P (MAP) Pulse Ox O2 Delivery O2 Flow Rate FiO2 07/03/21 12:21 94 Room Air 07/03/21 11:00 97.9 75 18 117/77 (90) 97.9 Labs: Labs: Laboratory Tests Test 07/02/21 23:54 07/03/21 01:10 07/03/21 02:50 07/03/21 06:50 Urine Collection Type Void Urine Color Yellow Urine Clarity Clear Urine pH 6.5 (<5.0-8.0) Urine Specific [place] 1.020 (1.000-1.030) Urine Protein Negative mg/dL (NEG-TRACE) Urine Glucose (UA) Negative mg/dL (NEG) Urine Ketones (Stick) Negative mg/dL (NEG) Urine Blood Negative (NEG) Urine Nitrite Negative (NEG) Urine Bilirubin Negative (NEG) Urine Urobilinogen Dipstick 0.2 mg/dL (0.2 mg/dL) Urine Leukocyte Esterase Negative (NEG) Urine RBC 0 /HPF (0-2) Urine WBC Occ /HPF (0-4) Urine Squamous Epithelial Cells Occ /LPF Urine Bacteria 0 /HPF (0-FEW) Urine Mucus Slight /LPF White Blood Count 9.0 x10^3/uL (4.0-11.0) Red Blood Count 4.86 x10^6/uL (4.30-5.70) Hemoglobin 12.7 g/dL (13.0-17.5) Hematocrit 39.9 % (39.0-53.0) Mean Corpuscular Volume 82 fL (79-100) Mean Corpuscular Hemoglobin 26 pg (25-35) Mean Corpuscular Hemoglobin Concent 32 g/dL (31-37) Red Cell Distribution Width 18.8 % (11.5-14.5) Platelet Count 285 x10^3/uL (140-400) Neutrophils (%) (Auto) 81 % (31-73) Lymphocytes (%) (Auto) 11 % (24-48) Monocytes (%) (Auto) 8 % (0-9) Eosinophils (%) (Auto) 0 % (0-3) Basophils (%) (Auto) 0 % (0-3) Neutrophils # (Auto) 7.2 x10^3/uL (1.8-7.7) Lymphocytes # (Auto) 1.0 x10^3/uL (1.0-4.8) Monocytes # (Auto) 0.7 x10^3/uL (0.0-1.1) Eosinophils # (Auto) 0.0 x10^3/uL (0.0-0.7) Basophils # (Auto) 0.0 x10^3/uL (0.0-0.2) SARS-CoV-2 Antigen (Rapid) Negative (NEGATIVE) Sodium Level 138 mmol/L (136-145) Potassium Level 4.1 mmol/L (3.5-5.1) Chloride Level 103 mmol/L (98-107) Carbon Dioxide Level 25 mmol/L (21-32) Anion Gap 10 (6-14) Blood Urea Nitrogen 10 mg/dL (8-26) Creatinine 1.1 mg/dL (0.7-1.3) Estimated GFR (Cockcroft-Gault) 81.3 BUN/Creatinine Ratio 9 (6-20) Glucose Level 100 mg/dL (70-99) Calcium Level 8.1 mg/dL (8.5-10.1) Magnesium Level 2.5 mg/dL (1.8-2.4) Total Bilirubin 0.7 mg/dL (0.2-1.0) Aspartate Amino Transf (AST/SGOT) 11 U/L (15-37) Alanine Aminotransferase (ALT/SGPT) 22 U/L (16-63) Alkaline Phosphatase 64 U/L (46-116) Total Protein 7.1 g/dL (6.4-8.2) Albumin 3.3 g/dL (3.4-5.0) Albumin/Globulin Ratio 0.9 (1.0-1.7) Lipase 290 U/L (73-393) Imaging: Imaging: EXAMINATION: CT abdomen and pelvis without IV contrast. INDICATION:65 years, Male, abdominal pain, nausea and vomiting. TECHNIQUE: Axial CT images of the abdomen and pelvis were obtained. Coronal and sagittal reformatted performed. COMPARISON: PET/CT dated 01/03/2013. Exposure: One or more of the following individualized dose reduction techniques were utilized for this examination: 1. Automated exposure control 2. Adjustment of the mA and/or kV according to patient size 3. Use of iterative reconstruction technique. FINDINGS: LOWER CHEST: Unremarkable. ABDOMEN/PELVIS: Mildly dilated multiple loops of small bowel in the left abdomen with perienteric fat stranding and engorgement of the vasa recta. Transitional zone is not clearly identified. Mild mesenteric swirling in the left abdomen. Sigmoid diverticulosis without acute diverticulitis. Uncomplicated duodenal dive rticulum. Appendix is normal. No suspicious focal hepatic lesion, within limitation of noncontrast exam. Spleen, pancreas are unremarkable. Contracted gallbladder. No biliary ductal dilation. No adrenal nodule. No hydronephrosis. Simple 6.8 cm left renal cyst. Mild aortoiliac atherosclerotic calcifications without dilation. No lymphadenopathy. No pneumoperitoneum or ascites. Unremarkable bladder and prostate. MUSCULOSKELETAL STRUCTURES: No suspicious osseous lesion. Multilevel degenerative changes in the spine. IMPRESSION: 1. Mildly dilated loops of small bowel in the left abdomen with perienteric fat stranding and engorgement of the vasa recta. Transitional zone is not clearly identified. Mild mesenteric swirling in the left abdomen. Findings are consi stent with partial small bowel obstruction. 2. Sigmoid diverticulosis without acute diverticulitis. Study: XR ABDOMEN COMP ACUTE Indication: Small bowel obstruction. Comparison: CT abdomen/pelvis 07/02/2021; chest radiographs 06/25/2012 Findings: Mildly prominent lung markings. No confluent airspace infiltrate. No pleural effusion or pneumothorax. The cardiomediastinal silhouette is within normal limits for size. Symmetric wilda. Arthrosis at the shoulders. Redemonstration of mild small bowel dilatation such as at the left upper quadrant measuring up to around 4 cm. No radiographic evidence for pneumoperitoneum. Small amount of well-formed stool within the colon. Gas is present within the rectum. Arthrosis at the right more so than left hips. Lumbar spondylosis. Impression: 1. Similar degree of mild small bowel dilatation mainly at the left aspect of the abdomen in relation to the recent CT abdomen/pelvis. Partial small bowel obstruction is still a consideration without radiographic evidence for worsenin g. 2. Mildly increased lung markings favored chronic. No confluent infiltrate or layering effusion. PE: General: Well developed, well nourished, no acute distress, well appearing HEENT: Pupils equally round and reactive to light, EOMI, no discharge, normal conjunctiva Neck: Supple, no nuchal rigidity, no JVD, trachea midline, no tenderness Cardiac: RRR, no murmurs, no gallops, no rubs Chest/Lungs: CTAB, no wheeze, no rhonchi, no crackles Abdomen: soft, mildly distended, minimal guarding, no peritoneal signs, non- tender Back: No tenderness Extremities: no edema, pulses intact, non-tender,capillary refill <3 sec bilateral upper and lower extremities, Neuro: Alert and oriented x 4, no focal deficits, normal speech A/P: A/P: A/P 1) Small bowel obstruction: He is feeling better now and does no tfeel like he needs to vomit. We discussed NGT if his symptoms worsen. he is amenable. Will monitor serial X rays and place NGT if symptms/imaging does not improve DALLAS CASTELLANO MD Jul 03, 2021 12:32
--- NOTE | 2021-07-03 12:49 | RAD ---
DG SMALL BOWEL FOLLOW THROUGH Indication: Reason: sbo / Spl. Instructions: 400ML OMNI 300MG USED / History: . Comparison: CT abdomen from 07/02/2021. Technique: Preliminary insurance executive film of the abdomen was obtained. Then following ingestion of oral 400 m L of Omni 300, serial images of the abdomen were obtained to assess progress of contrast throughout t he small bowel. Once the contrast reached the colon. Number of Fluoroscopic Images: 7 Findings: The insurance executive image demonstrates a nonobstructive bowel gas pattern. There are no distended small bowel loops. No strictures are seen. The small bowel fold pattern is unr emarkable. Transit time was slightly delayed at 1 hour 30 minutes (normal <120 minutes.) IMPRESSION: 1. Slightly delayed motility, otherwise unremarkable small bowel series. Electronically signed by: Stone Cardoza DO (07/03/2021 12:46 PM) [facility]
[2021-07-03] MEDS ORDERED: TADA20TA33 PO (13:48)
[2021-07-03] MEDS ORDERED: LOSA-73 PO (13:48)
[2021-07-03 15:00] VITALS: BP 118/57
[2021-07-03 19:00] VITALS: BP 127/63
[2021-07-03 23:00] VITALS: BP 127/73
[2021-07-04 03:00] VITALS: BP 132/85
[2021-07-04 07:00] VITALS: BP 171/89
[2021-07-04 07:00] LABS: BASO % 0 % (0-3); EOS # 0.1 x10^3/uL (0.0-0.7); EOS % 3 % (0-3); HEMATOCRIT 35.4 % (39.0-53.0); HEMOGLOBIN 11.3 g/dL (13.0-17.5); LYMPH # 1.1 x10^3/uL (1.0-4.8); LYMPH % 20 % (24-48); MEAN CORPUSCULAR HEMOGLOBIN 27 pg (25-35); MEAN CORPUSCULAR HGB CONC 32 g/dL (31-37); MEAN CORPUSCULAR VOLUME 83 fL (79-100); MONO # 0.6 x10^3/uL (0.0-1.1); MONO % 11 % (0-9); NEUT # 3.6 x10^3/uL (1.8-7.7); NEUT % 66 % (31-73); PLATELET COUNT 250 x10^3/uL (140-400); RED BLOOD COUNT 4.25 x10^6/uL (4.30-5.70); RED CELL DISTRIBUTION WIDTH 18.3 % (11.5-14.5); WHITE BLOOD COUNT 5.5 x10^3/uL (4.0-11.0)
[2021-07-04 07:11] LABS: CALCIUM 8.2 mg/dL (8.5-10.1); GFR 90.7; MAGNESIUM 1.9 mg/dL (1.8-2.4); PHOSPHORUS 3.9 mg/dL (2.6-4.7)
[2021-07-04] MEDS ORDERED: PANTOPRAZOLE IV PUSH 40 MG VIAL. IVP SCH (07:30)
--- NOTE | 2021-07-04 08:47 | PDOC ---
SURGICAL PROGRESS NOTE DATE: 07/04/21 TIME: 08:46 Subjective Patient states he is feeling much better wants to go home passing flatus Vital Signs Vital Signs Date Time Temp Pulse Resp B/P (MAP) Pulse Ox O2 Delivery O2 Flow Rate FiO2 07/04/21 07:00 98.2 87 18 171/89 (116) 96 Room Air 98.2 I&O Intake and Output 07/04/21 07:00 Intake Total 0 ml Balance 0 ml Intake Oral 0 ml # Voids 3 PATIENT HAS A HERNANDEZ: No General: Alert, Oriented X3, Cooperative, No acute distress Abdomen: Normal bowel sounds, Soft, No tenderness Labs Laboratory Tests Test 07/02/21 23:54 07/03/21 01:10 07/03/21 02:50 07/03/21 06:50 Urine Collection Type Void Urine Color Yellow Urine Clarity Clear Urine pH 6.5 (<5.0-8.0) Urine Specific [place] 1.020 (1.000-1.030) Urine Protein Negative mg/dL (NEG-TRACE) Urine Glucose (UA) Negative mg/dL (NEG) Urine Ketones (Stick) Negative mg/dL (NEG) Urine Blood Negative (NEG) Urine Nitrite Negative (NEG) Urine Bilirubin Negative (NEG) Urine Urobilinogen Dipstick 0.2 mg/dL (0.2 mg/dL) Urine Leukocyte Esterase Negative (NEG) Urine RBC 0 /HPF (0-2) Urine WBC Occ /HPF (0-4) Urine Squamous Epithelial Cells Occ /LPF Urine Bacteria 0 /HPF (0-FEW) Urine Mucus Slight /LPF White Blood Count 9.0 x10^3/uL (4.0-11.0) Red Blood Count 4.86 x10^6/uL (4.30-5.70) Hemoglobin 12.7 g/dL (13.0-17.5) Hematocrit 39.9 % (39.0-53.0) Mean Corpuscular Volume 82 fL (79-100) Mean Corpuscular Hemoglobin 26 pg (25-35) Mean Corpuscular Hemoglobin Concent 32 g/dL (31-37) Red Cell Distribution Width 18.8 % (11.5-14.5) Platelet Count 285 x10^3/uL (140-400) Neutrophils (%) (Auto) 81 % (31-73) Lymphocytes (%) (Auto) 11 % (24-48) Monocytes (%) (Auto) 8 % (0-9) Eosinophils (%) (Auto) 0 % (0-3) Basophils (%) (Auto) 0 % (0-3) Neutrophils # (Auto) 7.2 x10^3/uL (1.8-7.7) Lymphocytes # (Auto) 1.0 x10^3/uL (1.0-4.8) Monocytes # (Auto) 0.7 x10^3/uL (0.0-1.1) Eosinophils # (Auto) 0.0 x10^3/uL (0.0-0.7) Basophils # (Auto) 0.0 x10^3/uL (0.0-0.2) Coronavirus (COVID-19)(PCR) Not detected (NOT DETECTD) SARS-CoV-2 Antigen (Rapid) Negative (NEGATIVE) Sodium Level 138 mmol/L (136-145) Potassium Level 4.1 mmol/L (3.5-5.1) Chloride Level 103 mmol/L (98-107) Carbon Dioxide Level 25 mmol/L (21-32) Anion Gap 10 (6-14) Blood Urea Nitrogen 10 mg/dL (8-26) Creatinine 1.1 mg/dL (0.7-1.3) Estimated GFR (Cockcroft-Gault) 81.3 BUN/Creatinine Ratio 9 (6-20) Glucose Level 100 mg/dL (70-99) Calcium Level 8.1 mg/dL (8.5-10.1) Magnesium Level 2.5 mg/dL (1.8-2.4) Total Bilirubin 0.7 mg/dL (0.2-1.0) Aspartate Amino Transf (AST/SGOT) 11 U/L (15-37) Alanine Aminotransferase (ALT/SGPT) 22 U/L (16-63) Alkaline Phosphatase 64 U/L (46-116) Total Protein 7.1 g/dL (6.4-8.2) Albumin 3.3 g/dL (3.4-5.0) Albumin/Globulin Ratio 0.9 (1.0-1.7) Lipase 290 U/L (73-393) Test 07/04/21 06:30 White Blood Count 5.5 x10^3/uL (4.0-11.0) Red Blood Count 4.25 x10^6/uL (4.30-5.70) Hemoglobin 11.3 g/dL (13.0-17.5) Hematocrit 35.4 % (39.0-53.0) Mean Corpuscular Volume 83 fL (79-100) Mean Corpuscular Hemoglobin 27 pg (25-35) Mean Corpuscular Hemoglobin Concent 32 g/dL (31-37) Red Cell Distribution Width 18.3 % (11.5-14.5) Platelet Count 250 x10^3/uL (140-400) Neutrophils (%) (Auto) 66 % (31-73) Lymphocytes (%) (Auto) 20 % (24-48) Monocytes (%) (Auto) 11 % (0-9) Eosinophils (%) (Auto) 3 % (0-3) Basophils (%) (Auto) 0 % (0-3) Neutrophils # (Auto) 3.6 x10^3/uL (1.8-7.7) Lymphocytes # (Auto) 1.1 x10^3/uL (1.0-4.8) Monocytes # (Auto) 0.6 x10^3/uL (0.0-1.1) Eosinophils # (Auto) 0.1 x10^3/uL (0.0-0.7) Basophils # (Auto) 0.0 x10^3/uL (0.0-0.2) Sodium Level 140 mmol/L (136-145) Potassium Level 4.0 mmol/L (3.5-5.1) Chloride Level 105 mmol/L (98-107) Carbon Dioxide Level 26 mmol/L (21-32) Anion Gap 9 (6-14) Blood Urea Nitrogen 5 mg/dL (8-26) Creatinine 1.0 mg/dL (0.7-1.3) Estimated GFR (Cockcroft-Gault) 90.7 Glucose Level 87 mg/dL (70-99) Calcium Level 8.2 mg/dL (8.5-10.1) Phosphorus Level 3.9 mg/dL (2.6-4.7) Magnesium Level 1.9 mg/dL (1.8-2.4) Laboratory Tests Test 07/04/21 06:30 White Blood Count 5.5 x10^3/uL (4.0-11.0) Red Blood Count 4.25 x10^6/uL (4.30-5.70) Hemoglobin 11.3 g/dL (13.0-17.5) Hematocrit 35.4 % (39.0-53.0) Mean Corpuscular Volume 83 fL (79-100) Mean Corpuscular Hemoglobin 27 pg (25-35) Mean Corpuscular Hemoglobin Concent 32 g/dL (31-37) Red Cell Distribution Width 18.3 % (11.5-14.5) Platelet Count 250 x10^3/uL (140-400) Neutrophils (%) (Auto) 66 % (31-73) Lymphocytes (%) (Auto) 20 % (24-48) Monocytes (%) (Auto) 11 % (0-9) Eosinophils (%) (Auto) 3 % (0-3) Basophils (%) (Auto) 0 % (0-3) Neutrophils # (Auto) 3.6 x10^3/uL (1.8-7.7) Lymphocytes # (Auto) 1.1 x10^3/uL (1.0-4.8) Monocytes # (Auto) 0.6 x10^3/uL (0.0-1.1) Eosinophils # (Auto) 0.1 x10^3/uL (0.0-0.7) Basophils # (Auto) 0.0 x10^3/uL (0.0-0.2) Sodium Level 140 mmol/L (136-145) Potassium Level 4.0 mmol/L (3.5-5.1) Chloride Level 105 mmol/L (98-107) Carbon Dioxide Level 26 mmol/L (21-32) Anion Gap 9 (6-14) Blood Urea Nitrogen 5 mg/dL (8-26) Creatinine 1.0 mg/dL (0.7-1.3) Estimated GFR (Cockcroft-Gault) 90.7 Glucose Level 87 mg/dL (70-99) Calcium Level 8.2 mg/dL (8.5-10.1) Phosphorus Level 3.9 mg/dL (2.6-4.7) Magnesium Level 1.9 mg/dL (1.8-2.4) I have reviewed the following Small bowel follow-through is normal no evidence of obstruction Problem List Problems Medical Problems: (1) Partial small bowel obstruction Status: Acute Assessment/Plan Resolution of possible small bowel obstruction with normal small bowel follow- through advance diet as tolerated No surgical plans Justicifation of Admission Dx: Justifications for Admission: Justification of Admission Dx: N/A NANCY LUZ MD Jul 04, 2021 08:47
[2021-07-04] MEDS ORDERED: TAMSULOSIN 0.4 MG CAP.ER.24H. PO SCH (09:00)
[2021-07-04] MEDS: ENOXAPARIN 40 MG/0.4 ML SYRINGE. SQ SCH (10:12)
--- NOTE | 2021-07-04 10:26 | PDOC ---
Date of Service: DATE: 07/04/21 TIME: 10:21 Subjective: Subjective: Feels much better, says might get to go home after lunch, supposed to have more to eat (beyond liquids). No abd pain, no n/v. Stooling. Several past colonoscopies, never EGD. Was told to return in 10 years for screening colonoscopy and it hasn't been 10 years yet. Objective: Objective: D/w Dr. Theodore - [facility]ACIO today? Vital Signs: Vital Signs Date Time Temp Pulse Resp B/P (MAP) Pulse Ox O2 Delivery O2 Flow Rate FiO2 07/04/21 08:00 Room Air 07/04/21 07:00 98.2 87 18 171/89 (116) 96 98.2 Imaging: SBS IMPRESSION: 1. Slightly delayed motility, otherwise unremarkable small bowel series. AAS Impression: 1. Similar degree of mild small bowel dilatation mainly at the left aspect of the abdomen in relation to the recent CT abdomen/pelvis. Partial small bowel obstruction is still a consideration without radiographic evidence for worsening. 2. Mildly increased lung markings favored chronic. No confluent infiltrate or layering effusion. CT A/P IMPRESSION: 1. Mildly dilated loops of small bowel in the left abdomen with perienteric fat stranding and engorgement of the vasa recta. Transitional zone is not clearly identified. Mild mesenteric swirling in the left abdomen. Findings are consistent with partial small bowel obstruction. 2. Sigmoid diverticulosis without acute diverticulitis. PE: GEN: NAD LUNGS: CTAB HEART: RRR ABD: NABS, S/ND/NT NEURO/PSYCH: A & O 3 A/P: ?partial SBO - SBS without obstruction as above ?h/o GERD - on PPI here CRC screen - reports normal past colonoscopies Mild anemia -- Eating and stooling - DC per primary. Follow-up w/ GI for recurrent symptoms. Check iron for completeness. Justicifation of Admission Dx: Justifications for Admission: Justification of Admission Dx: N/A EDILIA ABAD Jul 04, 2021 10:26
[2021-07-04 11:00] VITALS: BP 150/83
--- NOTE | 2021-07-04 11:51 | DISCH ---
DISCHARGE INSTRUCTIONS Condition on Discharge Condition on Discharge: Stable Activity After Discharge Activity Instructions for Disc: Resume previous activity Exercise Instruction after Dis: Walk 30 min, 5 x per week Driving Instructions after Dis: Do not drive today Weight Bearing Status after Di: No restrictions Diet after Discharge Diet after Discharge: Cardiac Follow-Up Follow up with: PCP within 2 weeks of discharge Follow Up With: Gastroenterology or general surgery as needed or as scheduled LEEROY ALFREDO MD Jul 04, 2021 11:51
--- NOTE | 2021-07-04 13:41 | NUR ---
Discharge Note: [facility] Discharge instructions and discharge home medications reviewed with Patient and a copy given. All questions have been answered and understanding verbalized. The following instructions and handouts were given: discharge instructions, education and follow up recommendations. Discontinued lines and drains: Peripheral IV discontinued intact. Patient discharged to Home or Self Care with Self via Ambulated off unit by [employer].
--- NOTE | 2021-07-04 13:48 | NUR ---
SW following. Discussed with RN, pt from home, room air. Discharge order for home with self care. RN advised no SW needs.
--- NOTE | 2021-07-06 08:46 | PDOC3 ---
[facility]-Discharge Summary Date of Admission: Date of Admission: Jul 03, 2021 Date of Discharge: Date of Discharge: Jul 04, 2021 Discharge Diagnosis: Discharge Diagnosis: Acute abdominal pain due to partial small bowel obstruction Concern for gastroenteritis History of asthma History of BPH History of hypertension Obesity class I Hospital Course: Hospital Course: 65 year old male with a history of lung cancer presenting to the ED today complaining of moderate generalized abdominal pain described as a bloating feeling, symptoms began 5 days ago. Patient reports nausea, denies vomiting. Reports diarrhea this morning after taking Mylanta yesterday. States symptoms are worse when he is laying back. Denies anything specifically relieving the symptoms. By day of discharge, pt was clinically stable and ready for discharge. He was tolerating diet and has had an adequate BM. ABD pain is 0/10. Rest of hospital course was uneventful Disposition: Disposition/Orders: D/C to Home Activity: Activity: Resume previous activity Diet: Diet: Cardiac Medications: Home Meds Reported Medications Tadalafil (ADCIRCA) 20 Mg Tablet, 5 MG PO DAILY for enlarged prostate , TAB 07/03/21 Losartan Potassium (LOSARTAN POTASSIUM) 50 Mg Tablet, 50 MG PO DAILY for HYPERTENSION, TAB 07/03/21 Tiotropium [place] (SPIRIVA) 18 Mcg Cap.w.dev, 2 INH IH DAILY for asthma, #1 INH 0 Refills 07/03/21 Tamsulosin Hcl (FLOMAX) 0.4 Mg Cap.er.24h, 1 CAP PO DAILY for urine , #30 CAP 11 Refills 07/03/21 Pantoprazole Sodium (PANTOPRAZOLE SODIUM ) 40 Mg Tablet.dr, 1 TAB PO DAILY, #30 TAB 3 Refills 12/31/13 Amlodipine Besylate (AMLODIPINE BESYLATE) 10 Mg Tablet, 1 TAB PO DAILY, #30 TAB 5 Refills 12/31/13 Losartan/Hydrochlorothiazide (LOSARTAN-HCTZ 50-12.5 MG TAB) 1 Each Tablet, 1 TAB PO DAILY, #30 TAB 5 Refills 12/31/13 Scheduled Amlodipine Besylate (Amlodipine Besylate), 1 TAB PO DAILY, (Reported) Losartan Potassium (Losartan Potassium), 50 MG PO DAILY, (Reported) Losartan/Hydrochlorothiazide (Losartan-Hctz 50-12.5 Mg Tab), 1 TAB PO DAILY, (Reported) Pantoprazole Sodium (Pantoprazole Sodium ), 1 TAB PO DAILY, (Reported) Tadalafil (Adcirca), 5 MG PO DAILY, (Reported) Tamsulosin Hcl (Flomax), 1 CAP PO DAILY, (Reported) Tiotropium [place] (Spiriva), 2 INH IH DAILY, (Reported) Total Time: Total Time: Total time spent was 32 minutes in preparing scripts and discharge planning with SW and RN. Patient seen and examined on day of Discharge. Justicifation of Admission Dx: Justifications for Admission: Justification of Admission Dx: N/A LEEROY ALFREDO MD Jul 06, 2021 08:46
== END 2021-07-04 13:43 | disposition home or self-care (01) | DRG 372 ==
LOC: ER 22:41 → 4 NORTH 07-03 00:38
PROVIDERS: ADMIT Internal Medicine; ATTEND Internal Medicine
DX: A04.9 Bacterial intestinal infection, unspecified (principal); K56.600 Partial intestinal obstruction, unspecified as to cause; D64.9 Anemia, unspecified; E66.9 Obesity, unspecified; E78.5 Hyperlipidemia, unspecified; I10 Essential (primary) hypertension; Z20.822 Contact with and (suspected) exposure to COVID-19; J45.909 Unspecified asthma, uncomplicated; K57.30 Diverticulosis of large intestine without perforation or abscess without bleeding; N40.0 Benign prostatic hyperplasia without lower urinary tract symptoms; Z85.118 Personal history of other malignant neoplasm of bronchus and lung; Z87.891 Personal history of nicotine dependence; Z96.643 Presence of artificial hip joint, bilateral; K21.9 Gastro-esophageal reflux disease without esophagitis; Z68.30 Body mass index [BMI] 30.0-30.9, adult
CPT/HCPCS: 36415; 74022; 74176; 74250; 80048; 80053; 81001; 82607; 83540; 83550; 83690; 83735; 84100; 85025; 87426; 96361; 96374; 96375; C9113; J1650; J2270; J2405; J3490; J7030; Q9967; U0003; 97116-GP; 99285-25; G0378